=== PATIENT | male | born 2000 | race African-American/Black ===

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

== ENCOUNTER 2020-06-05 22:38 | Emergency (ER) | payer OTHER ==
[~2020-06-05] VITALS: Ht 170.2 cm; Wt 75.7 kg
[~2020-06-05 22:38] MED LIST changes: +TYLENOL WITH C1 EACH PO
--- OUTSIDE RECORDS SUMMARY | 2020-06-05 22:42 | XMS ---
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 Dino has no Care Guidelines for this patient. Care History Medical/Surgical 10/05/2018 [facility] - PATIENT HAS AN APT WITH [facility] ON 10/13/18 @ 9:15AM. - [facility] REFERRAL MADE BY [facility]. 09/13/2018 [facility] - [facility] CASE MANAGEMENT REFERRAL MADE- PATIENT HAS [facility] AND NO PCP. E.D. VISIT COUNT (12 MO[address] [facility]. TOTAL 1 NOTE: Visits indicate total known visits. ED/UCC VISIT TRACKING (12 MO.) 06/05/2020 22:39 [facility] TYPE: Emergency COMPLAINT: - ABDOMINAL PAIN,NAUSEA INPATIENT VISIT TRACKING (12 MO.) No inpatient visits to display in this time frame [email or web address]
== END 2020-06-06 01:16 | disposition home or self-care (01) ==
LOC: ED 22:38
DX: T65.891A Toxic effect of other specified substances, accidental (unintentional), initial encounter (principal); R20.0 Anesthesia of skin; R10.13 Epigastric pain; R11.0 Nausea; F17.200 Nicotine dependence, unspecified, uncomplicated; Z88.5 Allergy status to narcotic agent
CPT/HCPCS: 71045; 80053; 85025; 85379; 99283-25

== ENCOUNTER 2021-05-21 15:44 | Emergency (ER) | payer OTHER ==
[~2021-05-21] VITALS: Ht 165.1 cm; Wt 66.7 kg
[2021-05-21] MEDS ORDERED: ACETAMINOPHEN500 MG PO (15:57)
--- NOTE | 2021-05-22 17:26 | EKG ---
[facility] [address] [place] [address] Signed Sinus bradycardia Otherwise normal ECG When compared with ECG of 23-FEB-2018 14:56, Nonspecific T wave abnormality no longer evident in Lateral leads Confirmed by BEVERLEY IRWIN MD ([id number]) on 05/22/2021 5:26:16 PM Electronically Signed By: BEVERLEY IRWIN MD 05/22/21 1726 PATIENT NAME: ROSIO LOGAN Electrocardiogram DATE OF : 89 PHYSICIAN: BEVERLEY IRWIN MD REPORT #: [id number] REPORT IS CONFIDENTIAL AND NOT TO BE RELEASED WITHOUT AUTHORIZATION
== END 2021-05-21 17:51 | disposition home or self-care (01) ==
LOC: ED 15:44
DX: K21.9 Gastro-esophageal reflux disease without esophagitis (principal); R07.89 Other chest pain; R19.7 Diarrhea, unspecified; F17.200 Nicotine dependence, unspecified, uncomplicated; Z88.5 Allergy status to narcotic agent
CPT/HCPCS: 71045; 93005; 93010; 99285-25